=== PATIENT | female | born 1945 | race African-American/Black ===

== ENCOUNTER 2020-06-21 05:06 | Emergency (ER) | payer MEDICARE, OTHER ==
[~2020-06-21] VITALS: Ht 160 cm; Wt 74.0 kg
[~2020-06-21 05:06] MED LIST: ASPI-986 MT; BENA40TA9 MT; CHOL40002 MT; DONE10TA11 PO; DULA0.75 SQ; ERGO2500 PO; FERR325T6 MT; GLIM4TAB36 PO; HYDR25TA PO; LEVO75TA7 MT; LIRA0.6P SQ; MEGE400O5 MT; MEGE400O5 PO; MEMA10TA55 PO; METF-414 PO; METO-411 MT; PIOG45TA62 MT; PRO1 PO; SIMV-46 MT; SITA100T11 MT
[2020-06-21] MEDS ORDERED: SODIUM CHLORIDE 0.9% 1000ML BAG (SEPSIS BOLUS) IV ONE (05:30)
[2020-06-21 05:38] LABS: BASOPHILS % 0.9 % (0.0-2.0); EOSINOPHILS % 1.1 % (0.0-5.0); HEMATOCRIT. 37.4 % (36.0-48.0); HEMOGLOBIN. 12.3 g/dL (12.0-16.0); LYMPHOCYTES % 25.9 % (20.0-50.0); MEAN CORPUSCULAR HEMOGLOBIN 26.9 pg (28.0-32.0); MEAN CORPUSCULAR VOLUME 82.1 fL (81.0-99.0); MEAN PLATELET VOLUME 10.4 fl (7.4-10.4); MONOCYTES % 6.7 % (2.0-8.0); NEUTROPHILS % 65.4 % (40.0-76.0); PLATELET 183 x1000/uL (130-400); RED BLOOD CELL COUNT 4.55 mill/uL (4.2-5.4); RED CELL DISTRIBUTION WIDTH 15.1 % (11.6-14.6)
[2020-06-21 05:46] LABS: CHLORIDE 108 mEq/L (98-107)
[2020-06-21 05:48] LABS: INR 0.9
[2020-06-21 06:06] LABS: CLARITY URINE CLEAR (CLEAR); COLOR URINE YELLOW (YELLOW); KETONES URINE NEGATIVE (NEGATIVE); LEUKOCYTE ESTERASE URINE 2+ (NEGATIVE); NITRITE URINE NEGATIVE (NEGATIVE); OCCULT BLOOD URINE NEGATIVE (NEGATIVE); PROTEIN URINE NEGATIVE (NEGATIVE); SPECIFIC GRAVITY URINE 1.016 (1.005-1.030); UROBILINOGEN URINE 0.2 E.U./dL (0.2-1.0)
[2020-06-21] MEDS ORDERED: LEVOFLOXACIN 750MG PREMIX 150 ML IV ONE (07:30)
[2020-06-21] MEDS ORDERED: CLONIDINE 0.1MG TABLET PO PRN (11:00)
[2020-06-21] MEDS ORDERED: AMLODIPINE 10MG TABLET PO SCH (11:00)
[2020-06-21] MEDS ORDERED: ONDANSETRON HCL 4MG/2ML INJ IV PRN (11:00)
[2020-06-21] MEDS ORDERED: DEXTROSE 50% WATER 50ML SYRINGE IV PRN (11:00)
[2020-06-21] MEDS ORDERED: ACETAMINOPHEN 325MG TABLET PO PRN (11:00)
[2020-06-21] MEDS ORDERED: POTASSIUM CHLORIDE 20MEQ TABLET SR PO NR (11:30)
[2020-06-21] MEDS ORDERED: NIFEDIPINE XL 30MG TAB PO SCH (11:30)
[2020-06-21] MEDS ORDERED: LEVOTHYROXINE SODIUM 75MCG TABLET PO SCH (12:00)
[2020-06-21] MEDS ORDERED: ASPIRIN 81MG TABLET PO SCH (12:00)
[2020-06-21 12:13] LABS: T4 FREE 1.15 ng/dL (0.76-1.46)
[2020-06-21] MEDS ORDERED: NIFEDIPINE XL 60MG TAB PO SCH (12:45)
[2020-06-21] MEDS ORDERED: BLOOD SUGAR DIAGNOSTIC STRIP TEST SCH (13:00)
[2020-06-21] MEDS ORDERED: INSULIN LISPRO 100 UNITS/ML SUBCUT SCH (13:20)
[2020-06-21 17:54] LABS: VITAMIN B12 SERUM 246 pg/mL (211-911)
[2020-06-21 18:22] VITALS: BP 176/80
[2020-06-21] MEDS ORDERED: METOPROLOL TARTRATE 50MG TABLET PO SCH (21:00)
[2020-06-21] MEDS ORDERED: HEPARIN 5000 UNITS/ML VIAL SUBCUT SCH (21:00)
[2020-06-21] MEDS ORDERED: ATORVASTATIN CALCIUM 40MG TABLET PO SCH (21:00)
== END 2020-06-21 18:25 | disposition left against medical advice (07) ==
LOC: ER 05:06 → EDBEDREQ 08:57 → EDBEDREQSVC 08:57 → EDBEDREQTM 08:57 → CANBEDREQ 16:49 → ER 18:25
DX: E11.649 Type 2 diabetes mellitus with hypoglycemia without coma (principal); E11.65 Type 2 diabetes mellitus with hyperglycemia; G93.41 Metabolic encephalopathy; N39.0 Urinary tract infection, site not specified; I10 Essential (primary) hypertension; F03.90 Unspecified dementia, unspecified severity, without behavioral disturbance, psychotic disturbance, mood disturbance, and anxiety; E87.6 Hypokalemia; E86.0 Dehydration; Z86.73 Personal history of transient ischemic attack (TIA), and cerebral infarction without residual deficits; Z79.84 Long term (current) use of oral hypoglycemic drugs; Z79.82 Long term (current) use of aspirin
CPT/HCPCS: 36415; 70450; 70551; 71045; 80053; 80061; 81003; 82607; 82962; 83036; 83605; 84145; 84439; 84443; 84484; 85025; 85610; 87040; 87086; 93005; 96365; 96375; 99285; J1956; J7030